=== PATIENT | female | born 1990 | race Caucasian/White ===

== ENCOUNTER 2017-10-30 21:30 | Emergency (ER) | payer MEDICAID ==
[~2017-10-30] VITALS: Ht 154.9 cm; Wt 64.0 kg
[~2017-10-30 21:30] MED LIST: ACET-1059 PO; ALBU18HF2 INH; AMOX-419 PO; BECL8.7A6 INH; CIPR10DR OT; HYDR1TAB PO; PRED10TA PO; PRED50TA PO; ZOF4T PO
[2017-10-30] MEDS ORDERED: magnesium 2GM in 50ml NS 50 ML IV ONE (21:45)
[2017-10-30] MEDS ORDERED: ipratropium 0.5 MG/2.5ML nebule IH ONE (21:45)
[2017-10-30] MEDS ORDERED: albuterol 2.5 MG/3 ML nebule CONTNEB PRN (21:45)
[2017-10-30] MEDS ORDERED: methylPREDNISolone sod succ 125mg/2ml vial IV ONE (21:45)
[2017-10-30 22:04] LABS: BASOPHILS % (AUTO) 0.3 % (0-1); EOSINOPHILS # (AUTO) 0.1 X10'3 (0-0.9); EOSINOPHILS % (AUTO) 1.5 % (0-6); HEMATOCRIT 39.7 % (35.0-45.0); HEMOGLOBIN 13.7 g/dl (12.0-16.0); LYMPHOCYTES # (AUTO) 1.4 X10'3 (1.1-4.8); LYMPHOCYTES % (AUTO) 19.6 % (21-51); MEAN CORPUSCULAR HGB CONC 34.5 % (33.0-36.5); MEAN CORPUSCULAR VOLUME 83.9 FL (78-98); MEAN PLATELET VOLUME 7.7 FL (7.4-10.4); MONOCYTES % (AUTO) 14.2 % (2-12); NEUTROPHILS # (AUTO) 4.7 X10'3 (1.8-7.7); NEUTROPHILS % (AUTO) 64.4 % (42-75); PLATELET COUNT 243 X10'3 (140-440); RED BLOOD COUNT 4.74 X10'6 (4.20-5.60); RED CELL DISTRIBUTION WIDTH 16.2 % (11.5-14.5); WHITE BLOOD COUNT 7.2 X10'3 (4.5-11.0)
[2017-10-30 22:30] LABS: ALANINE AMINOTRANSFERASE 15 U/L (12-78); ALBUMIN 4.1 G/DL (3.4-5.0); ALBUMIN/GLOBULIN RATIO 1.2 (1.1-1.5); ALKALINE PHOSPHATASE 82 IU/L (46-116); ANION GAP 13 (8-16); ASPARTATE AMINO TRANSFERASE 14 U/L (10-37); BILIRUBIN,TOTAL 0.3 MG/DL (0.1-1.0); BLOOD UREA NITROGEN 19 MG/DL (7-18); BUN/CREATININE RATIO 23.8 (6.6-38.0); CALCIUM 8.9 MG/DL (8.5-10.1); CHLORIDE 104 MMOL/L (99-107); GLUCOSE 92 MG/DL (70-104); MAGNESIUM 1.7 MG/DL (1.5-2.4); POTASSIUM 3.4 MMOL/L (3.5-5.1); SODIUM 139 MMOL/L (135-145); TOTAL CARBON DIOXIDE 22.5 MMOL/L (24-32); TOTAL PROTEIN 7.5 G/DL (6.4-8.2); eGFR 87 ML/MIN
[2017-10-30 22:50] LABS: D-DIMER 0.39 MG/L FEU (0-0.50)
[2017-10-30] MEDS ORDERED: normal saline 1000ML IV soln IVB ONE (23:10)
[2017-10-30] MEDS ORDERED: PRED20TA PO (23:29)
[2017-10-31 00:04] VITALS: BP 116/54
== END 2017-10-31 00:03 | disposition home or self-care (01) ==
LOC: ER 21:31
DX: J45.901 Unspecified asthma with (acute) exacerbation (principal); J06.9 Acute upper respiratory infection, unspecified; Z79.899 Other long term (current) drug therapy
CPT/HCPCS: 36415; 71045; 80053; 83735; 83880; 84484; 85025; 85379; 87502; 87503; 93005; 94644; 94760; 96361; 96365; 96375; 99285; J2930; J3475; 94640

== ENCOUNTER 2017-10-31 22:44 | Emergency (ER) | payer MEDICAID ==
[~2017-10-31] VITALS: Ht 154.9 cm; Wt 66.0 kg
[~2017-10-31 22:44] MED LIST changes: +PRED20TA PO
[2017-10-31] MEDS ORDERED: magnesium 2GM in 50ml NS 50 ML IV ONE (22:55)
[2017-10-31] MEDS ORDERED: albuterol 2.5 MG/3 ML nebule CONTNEB PRN (22:55)
[2017-10-31] MEDS ORDERED: methylPREDNISolone sod succ 125mg/2ml vial IV ONE (22:55)
[2017-10-31] MEDS ORDERED: ipratropium 0.5 MG/2.5ML nebule IH ONE (22:55)
[2017-10-31] MEDS ORDERED: normal saline 1000ML IV soln IVB ONE (22:55)
[2017-10-31 23:24] LABS: BASOPHILS % (AUTO) 0.3 % (0-1); EOSINOPHILS # (AUTO) 0.1 X10'3 (0-0.9); EOSINOPHILS % (AUTO) 0.9 % (0-6); HEMATOCRIT 33.8 % (35.0-45.0); HEMOGLOBIN 11.7 g/dl (12.0-16.0); LYMPHOCYTES # (AUTO) 1.4 X10'3 (1.1-4.8); LYMPHOCYTES % (AUTO) 15.2 % (21-51); MEAN CORPUSCULAR HEMOGLOBIN 28.8 PG (27.0-31.0); MEAN CORPUSCULAR HGB CONC 34.7 % (33.0-36.5); MEAN CORPUSCULAR VOLUME 83.2 FL (78-98); MEAN PLATELET VOLUME 7.5 FL (7.4-10.4); MONOCYTES % (AUTO) 10.7 % (2-12); NEUTROPHILS # (AUTO) 6.9 X10'3 (1.8-7.7); NEUTROPHILS % (AUTO) 72.9 % (42-75); PLATELET COUNT 209 X10'3 (140-440); RED BLOOD COUNT 4.07 X10'6 (4.20-5.60); RED CELL DISTRIBUTION WIDTH 16.8 % (11.5-14.5); WHITE BLOOD COUNT 9.5 X10'3 (4.5-11.0)
[2017-10-31 23:37] LABS: D-DIMER 0.31 MG/L FEU (0-0.50)
[2017-10-31 23:47] LABS: ALANINE AMINOTRANSFERASE 19 U/L (12-78); ALBUMIN 3.4 G/DL (3.4-5.0); ALBUMIN/GLOBULIN RATIO 1.1 (1.1-1.5); ALKALINE PHOSPHATASE 66 IU/L (46-116); ANION GAP 13 (8-16); ASPARTATE AMINO TRANSFERASE 13 U/L (10-37); BILIRUBIN,TOTAL 0.1 MG/DL (0.1-1.0); BLOOD UREA NITROGEN 14 MG/DL (7-18); BUN/CREATININE RATIO 15.6 (6.6-38.0); CALCIUM 8.2 MG/DL (8.5-10.1); CHLORIDE 109 MMOL/L (99-107); GLUCOSE 93 MG/DL (70-104); MAGNESIUM 1.8 MG/DL (1.5-2.4); POTASSIUM 3.3 MMOL/L (3.5-5.1); SODIUM 143 MMOL/L (135-145); TOTAL CARBON DIOXIDE 20.7 MMOL/L (24-32); TOTAL PROTEIN 6.5 G/DL (6.4-8.2); eGFR 76 ML/MIN
[2017-11-01 00:24] VITALS: BP 118/63
== END 2017-11-01 00:56 | disposition home or self-care (01) ==
LOC: ER 22:44
DX: J45.909 Unspecified asthma, uncomplicated (principal); Z79.2 Long term (current) use of antibiotics
CPT/HCPCS: 36415; 71045; 80053; 83735; 83880; 84484; 85025; 85379; 85610; 93005; 94644; 94760; 96365; 96375; 99285; J2930; J3475; 94640

== ENCOUNTER 2017-11-02 10:40 | Inpatient (IN) | payer MEDICAID ==
[~2017-11-02] VITALS: Ht 154.9 cm; Wt 66.0 kg
[2017-11-02] MEDS ORDERED: normal saline 1000ML IV soln IVB ONE (11:15)
[2017-11-02] MEDS ORDERED: methylPREDNISolone sod succ 125mg/2ml vial IV ONE (11:15)
[2017-11-02] MEDS ORDERED: magnesium 2GM in 50ml NS 50 ML IV ONE (11:15)
[2017-11-02] MEDS ORDERED: albuterol 2.5 MG/3 ML nebule ONE (11:20)
[2017-11-02 11:38] LABS: BASOPHILS % (AUTO) 0.1 % (0-1); EOSINOPHILS % (AUTO) 0.8 % (0-6); HEMOGLOBIN 11.6 g/dl (12.0-16.0); LYMPHOCYTES # (AUTO) 0.7 X10'3 (1.1-4.8); LYMPHOCYTES % (AUTO) 12.6 % (21-51); MEAN CORPUSCULAR HEMOGLOBIN 28.9 PG (27.0-31.0); MEAN CORPUSCULAR HGB CONC 35.2 % (33.0-36.5); MEAN CORPUSCULAR VOLUME 82.2 FL (78-98); MEAN PLATELET VOLUME 7.3 FL (7.4-10.4); MONOCYTES # (AUTO) 0.7 X10'3 (0-0.9); MONOCYTES % (AUTO) 12.7 % (2-12); NEUTROPHILS # (AUTO) 3.8 X10'3 (1.8-7.7); NEUTROPHILS % (AUTO) 73.8 % (42-75); PLATELET COUNT 199 X10'3 (140-440); RED BLOOD COUNT 4.02 X10'6 (4.20-5.60); RED CELL DISTRIBUTION WIDTH 16.9 % (11.5-14.5); WHITE BLOOD COUNT 5.1 X10'3 (4.5-11.0)
[2017-11-02] MEDS ORDERED: oseltamivir phos 75mg capsule PO ONE (11:40)
[2017-11-02 11:54] LABS: ALBUMIN 3.2 G/DL (3.4-5.0); ANION GAP 8 (8-16); ASPARTATE AMINO TRANSFERASE 12 U/L (10-37); BILIRUBIN,TOTAL 0.2 MG/DL (0.1-1.0); BLOOD UREA NITROGEN 11 MG/DL (7-18); BUN/CREATININE RATIO 15.7 (6.6-38.0); CALCIUM 8.2 MG/DL (8.5-10.1); CHLORIDE 110 MMOL/L (99-107); GLUCOSE 108 MG/DL (70-104); POTASSIUM 4.1 MMOL/L (3.5-5.1); SODIUM 144 MMOL/L (135-145); TOTAL CARBON DIOXIDE 25.8 MMOL/L (24-32); TOTAL PROTEIN 6.5 G/DL (6.4-8.2); eGFR > 90 ML/MIN
[2017-11-02 11:55] LABS: ALANINE AMINOTRANSFERASE 17 U/L (12-78); ALKALINE PHOSPHATASE 65 IU/L (46-116)
[2017-11-02] MEDS ORDERED: potassium Cl 20 mEq SR tablet PO PRN ×2 (12:45)
[2017-11-02] MEDS ORDERED: bisacodyl 10mg suppository rectal RC PRN (12:45)
[2017-11-02] MEDS ORDERED: potassium Cl 40MEQ/NS 500ml 500 ML IV PRN ×2 (12:45)
[2017-11-02] MEDS ORDERED: magnesium 2GM in 50ml NS 50 ML IV PRN (12:45)
[2017-11-02] MEDS ORDERED: acetaminophen 325mg tablet PO PRN (12:45)
[2017-11-02] MEDS ORDERED: magnesium hydroxide 30ml (MOM) UD suspension PO PRN (12:45)
[2017-11-02] MEDS ORDERED: magnesium Cl slow-release 64mg tablet PO PRN (12:45)
[2017-11-02] MEDS ORDERED: mag hydrox/Alum hydrox/simeth 30ml oral suspension PO PRN (12:45)
[2017-11-02] MEDS ORDERED: magnesium 4gm in 100ml NS 100 ML IV PRN (12:45)
[2017-11-02] MEDS ORDERED: ondansetron/PF 4mg/2ml inj IV PRN (12:45)
[2017-11-02] MEDS ORDERED: non-formulary drug (Albuterol Sulfate (Ventolin Hfa) 2 PUFFS) INH SCH (12:55)
[2017-11-02 14:23] LABS: HCG SERUM QL NEGATIVE
[2017-11-02] MEDS: normal saline 1000ml 1,000 ML IV SCH (14:51)
[2017-11-02] MEDS: albuterol 2.5 MG/3 ML nebule NEB SCH ×2 (15:00→18:53)
[2017-11-02] MEDS: methylPREDNISolone sod succ 125mg/2ml vial IV SCH (15:45)
[2017-11-02 19:30] VITALS: BP 132/73
[2017-11-02] MEDS: oseltamivir phos 75mg capsule PO SCH (21:39)
[2017-11-03] VITALS: BP 125/70
[2017-11-03] MEDS: normal saline 1000ml 1,000 ML IV SCH ×2 (00:35→13:31)
[2017-11-03] MEDS: methylPREDNISolone sod succ 125mg/2ml vial IV SCH ×2 (00:35→07:11)
[2017-11-03 06:07] LABS: ANION GAP 10 (8-16); BLOOD UREA NITROGEN 14 MG/DL (7-18); CALCIUM 8.2 MG/DL (8.5-10.1); CHLORIDE 110 MMOL/L (99-107); GLUCOSE 147 MG/DL (70-104); MAGNESIUM 1.9 MG/DL (1.5-2.4); POTASSIUM 4.4 MMOL/L (3.5-5.1); SODIUM 143 MMOL/L (135-145); TOTAL CARBON DIOXIDE 23.1 MMOL/L (24-32); eGFR > 90 ML/MIN
[2017-11-03 07:00] VITALS: BP 112/61
[2017-11-03] MEDS: albuterol 2.5 MG/3 ML nebule NEB SCH ×3 (07:05→15:22)
[2017-11-03] MEDS: oseltamivir phos 75mg capsule PO SCH (07:13)
[2017-11-03] MEDS ORDERED: fluticasone furoate 100MCG/puff inhaler IH SCH (08:00)
[2017-11-03] MEDS ORDERED: K and/or MAG REPLACEMENT MC SCH (08:00)
[2017-11-03 11:30] VITALS: BP 122/64
[2017-11-03] MEDS ORDERED: TAM75C PO (15:55)
[2017-11-03] MEDS ORDERED: PRED50TA PO (15:55)
== END 2017-11-03 16:21 | disposition home or self-care (01) | DRG 113 ==
LOC: ER 10:40 → ED HOLD 12:45 → EDBEDREQTM 15:39 → ED HOLD 19:10 → SUR 3N 19:10 → CMPBEDREQ 19:45 → SUR 3N 20:45
PROVIDERS: ADMIT Internal Medicine; ATTEND Internal Medicine
DX: J11.1 Influenza due to unidentified influenza virus with other respiratory manifestations (principal); J45.901 Unspecified asthma with (acute) exacerbation; Z87.891 Personal history of nicotine dependence
CPT/HCPCS: 36415; 71045; 80048; 80053; 83735; 84703; 85025; 87070; 94640; 94760; 96374; 99285; J2930; J3475; J7030

== ENCOUNTER 2018-03-21 20:52 | Emergency (ER) | payer MEDICAID ==
[~2018-03-21] VITALS: Ht 154.9 cm; Wt 58.9 kg
[~2018-03-21 20:52] MED LIST changes: -ACET-1059 PO; -AMOX-419 PO; -CIPR10DR OT; -PRED10TA PO; -PRED20TA PO; +TAM75C PO; -ZOF4T PO
[2018-03-21 20:58] VITALS: BP 114/68
== END 2018-03-21 22:26 | disposition left against medical advice (07) ==
LOC: ER 20:53
DX: K08.89 Other specified disorders of teeth and supporting structures (principal); Z53.21 Procedure and treatment not carried out due to patient leaving prior to being seen by health care provider

== ENCOUNTER 2018-05-12 10:17 | Emergency (ER) | payer MEDICAID ==
[~2018-05-12] VITALS: Ht 154.9 cm; Wt 59.1 kg
[2018-05-12] MEDS ORDERED: CLIN300C85 PO (10:29)
[2018-05-12] MEDS ORDERED: IBUP-1984 PO (10:29)
[2018-05-12 10:36] VITALS: BP 113/72
== END 2018-05-12 10:39 | disposition home or self-care (01) ==
LOC: ER 10:18
DX: K08.89 Other specified disorders of teeth and supporting structures (principal); J45.909 Unspecified asthma, uncomplicated; Z79.899 Other long term (current) drug therapy
CPT/HCPCS: 99283

== ENCOUNTER 2018-10-20 11:21 | Emergency (ER) | payer MEDICAID ==
[~2018-10-20] VITALS: Ht 154.9 cm; Wt 58.0 kg
[~2018-10-20 11:21] MED LIST changes: +CLIN300C85 PO
[2018-10-20 11:22] VITALS: BP 133/78
[2018-10-20] MEDS ORDERED: ACET-3068 PO (12:20)
== END 2018-10-20 12:49 | disposition home or self-care (01) ==
LOC: ER 11:21
DX: G56.03 Carpal tunnel syndrome, bilateral upper limbs (principal); J45.909 Unspecified asthma, uncomplicated; F17.200 Nicotine dependence, unspecified, uncomplicated; Z79.899 Other long term (current) drug therapy
CPT/HCPCS: 29125; 99283

== ENCOUNTER → 2021-05-30 | Emergency (ER) | payer MEDICAID ==
[~2021-05-30] VITALS: Ht 154.9 cm; Wt 86.4 kg
[~2021-05-30] MED LIST changes: +AMOX-580 PO; +CLIN-97 PO; -CLIN300C85 PO; +amox tr/potassium clavulanate 875/125mg TAB PO ONE; +ondansetron 4mg rapidly disintigrating tab PO ONE; +ondansetron 4mg/5ml UD cup PO ONE
[2021-05-30 02:01] VITALS: BP 141/79
== END | disposition home or self-care (01) ==
LOC: ER 01:54
DX: O26.892 Other specified pregnancy related conditions, second trimester (principal); K04.7 Periapical abscess without sinus; K02.9 Dental caries, unspecified; O99.512 Diseases of the respiratory system complicating pregnancy, second trimester; J45.909 Unspecified asthma, uncomplicated; Z79.899 Other long term (current) drug therapy; Z3A.18 18 weeks gestation of pregnancy
CPT/HCPCS: 99283